=== PATIENT | female | born 1990 | race Asian ===

== ENCOUNTER → 2021-10-09 | Day surgery (SDC) | payer OTHER ==
[~2021-10-09] VITALS: Ht 152.4 cm; Wt 59.0 kg
[~2021-10-09] MED LIST: NORCO 5-325 TA1 EACH PO
[2021-10-09 07:30] LABS: HGB 13.8 g/dl (12.5-16.0); MCH 31.7 pg (25.0-31.0); MCHC 34.5 g/dL (32.0-36.0); MPV 10.9 fL (6.0-9.5); RBC 4.35 M/uL (4.20-5.40); RDW 12.3 % (11.5-14.0); WBC 6.1 K/uL (4.0-10.5)
[2021-10-09 07:39] LABS: BILIRUBIN - TOTAL 0.6 mg/dL (0.2-1.0); BUN/CREAT RATIO (CALC) 18.6 RATIO; CREATININE 0.59 mg/dL (0.51-0.95); GLOBULIN (CALCULATION) 3.1 g/dL; POTASSIUM 3.7 mmol/L (3.5-5.1); TOTAL PROTEIN 7.1 g/dL (6.4-8.2)
== END | disposition home or self-care (01) ==
LOC: FAS 06:30
PROVIDERS: Specialist
DX: O02.1 Missed abortion (principal)
CPT/HCPCS: 36415; 80053; 86850; 86900; 86901; J0690; J1100; J1885; J2250; J2405; J2704; J3010; J7120